=== PATIENT | female | born 1965 | race African-American/Black ===

== ENCOUNTER 2019-01-20 18:03 | Emergency (ER) | payer OTHER ==
[~2019-01-20] VITALS: Ht 157.5 cm; Wt 65.8 kg
[~2019-01-20 18:03] MED LIST: ALKA-SELTZER P1 EAC6 PO; ANTIVERT25 MG PO; ASPIRIN325 PO; CRESTOR10 MG PO; HUMALOG100 UNIT/1 SUBQ; HYDROCHLOROTHIA25 M2 PO; HYDROCHLOROTHIA50 MG PO; HYDROCODONE-AP1 EAC6 PO; IRON325 PO; LANTUSSOLASTAR SUBQ; LEVEMIR SUBQ; LIPITOR 20 MG T20 M1 PO; LISINOPRIL20 MG PO; MINOCYCLINE HC100 M2 PO; NORVASC10 MG PO; NORVASC5 MG PO; NOVOLOG100 UNIT/1; PERCOCET 5-3251 EACH PO; PERCOCET PO; POTASSIUM20 PO; PREDNISONE 10 M10 MG; PROTONIX40 M1 PO; TOPROL XL50 MG PO; ULTRAM 50MG TAB50 MG PO; VANCOMYCIN HCL1 GM IVPB; VITAMIN D1000 UNI1 PO; XANAX 0.5 MG0.5 MG PO; ZOLOFT50 MG PO
[2019-01-20 18:42] LABS: ABSOLUTE NEUTROPHILS 6.6 thou/uL (1.4-8.2); BASOPHILS 1.1 % (0.0-2.0); EOSINOPHILS 1.5 % (0.0-3.0); HEMATOCRIT 43.5 % (37.0-47.0); HEMOGLOBIN 14.4 gm/dL (12.0-15.0); LYMPHOCYTES 17.8 % (24.0-44.0); MCH 28.4 pg (26.0-34.0); MCHC 33.2 g/dL (28.0-37.0); MCV 85.6 fL (80.0-100.0); MONOCYTES 5.7 % (1.0-8.0); POLYS 73.9 % (36.0-66.0); RBC 5.08 mil/uL (4.20-5.00); RDW 13.7 % (10.5-14.5); WBC 8.9 thou/uL (4.0-11.0)
[2019-01-20 18:57] LABS: APTT 34.1 Seconds (24.5-32.8); PROTIME 9.9 Seconds (9.3-11.4)
[2019-01-20 19:22] LABS: ANION GAP 11 mmol/L (7-16); BUN 16 mg/dL (7-18); CALCIUM 9.5 mg/dL (8.5-10.1); CHLORIDE 101 mmol/L (98-107); CO2 25 mmol/L (21-32); CREATININE 1.1 mg/dL (0.6-1.0); GLUCOSE 118 mg/dL (74-106); SODIUM 137 mmol/L (136-145)
[2019-01-20 19:26] LABS: LARGE PLATELETS RARE; PLATELET COUNT 189 thou/uL (150-400)
[2019-01-20 19:33] LABS: ALBUMIN 4.1 g/dL (3.4-5.0); SGOT 14 U/L (15-37); SGPT 14 U/L (30-65); TOTAL BILIRUBIN 0.7 mg/dL (<0.1-1.0); TOTAL PROTEIN 8.5 g/dL (6.4-8.2); TROPONIN-I <0.06 ng/mL (<0.06)
[2019-01-20 20:41] VITALS: BP 155/72
--- NOTE | 2019-01-21 08:25 | EKG ---
[address] [place] [place] [address] ELECTROCARDIOGRAM REPORT Name: JESS ANDRES Room #: [facility]#: [id number] ������������������ Admission: 01/20/19 ������������������ Attend Phys: Discharge: 01/20/19 ������������������ Date of : 69 Report #: [id number] ����������������������������������������������������������������� [id number] THIS REPORT FOR: //name// [facility] ED Test Date: 2019-01-20 Test Time: 18:44:46 Pat Name: JESS ANDRES Department: Room: Gender: F Media Relations Intern: : 1965 Requested By: Horacio Hendrix Order Number: [id number] MD: Jason Carson Measurements Intervals [place] Rate: 91 P: 59 HI: 150 QRS: 39 QRSD: 88 T: 69 QT: 351 QTc: 432 Interpretive Statements Sinus rhythm Poor septal R-wave progression Compared to ECG 05/24/2015 09:36:17 Lateral T wave abnormality is less pronounced Electronically Signed On 01-21-2019 8:24:57 CDT by Jason Carson [email or web address] ��������������������������������������������� <ELECTRONICALLY SIGNED> ���������������������������������������� By: Jason Carson MD, [facility] ��������������������������������������������� 01/21/19 0824 [id number] Jason Carson MD, FACC /EPI
== END 2019-01-20 20:49 ==
LOC: ER 18:03
PROVIDERS: Emergency Medicine
DX: E11.649 Type 2 diabetes mellitus with hypoglycemia without coma (principal); I10 Essential (primary) hypertension; Z88.1 Allergy status to other antibiotic agents; Z88.2 Allergy status to sulfonamides; E78.5 Hyperlipidemia, unspecified; Z86.73 Personal history of transient ischemic attack (TIA), and cerebral infarction without residual deficits; Z79.4 Long term (current) use of insulin